=== PATIENT | male | born 1965 | race Caucasian/White ===

== ENCOUNTER 2019-01-13 07:58 | Emergency (ER) | payer OTHER ==
[2019-01-13 08:39] LABS: Influenza A Molecular NEGATIVE (Negative); Influenza B Molecular NEGATIVE (Negative)
--- NOTE | 2019-01-13 08:45 | UC ---
UC General HPI - HPI Summary HPI Summary: Healthy 53 yo male presents with dizziness when changing position from supine to standing and body aches. Began after exercising yesterday. NURSES NOTE REVIEWED. VITAL SIGNS REVIEWED. From midnight to 6 am couldn't sleep. Vomited once. Also feels nausea. - History of Current Complaint Chief Complaint: UCGeneralIllness Stated Complaint: FLU LIKE SYMP Time Seen by Provider: 01/13/19 08:15 Hx Obtained From: Patient Hx From Patient Unobtainable Due To: Extremis Onset/Duration: Gradual Onset - began after 2 vigorous workouts yesterday Onset Severity: Moderate Current Severity: Moderate - dizzy when standing Pain Intensity: 7 Associated Signs & Symptoms: Positive: Dizziness. Negative: Headache - Allergy/Home Medications Allergies/Adverse Reactions: Allergies Allergy/AdvReac Type Severity Reaction Status Date / Time No Known Allergies Allergy Verified 01/13/19 08:13 PMH/Surg Hx/FS Hx/Imm Hx Previously Healthy: Yes - Denies significant hospitalizations or surgery. - Surgical History Surgery Procedure, Year, and Place: hemmorrhoid/fistual - Family History Known Family History: Positive: Hypertension - Social History Occupation: Employed Full-time - Human Resources at [employer] Lives: With Family Alcohol Use: Weekly Substance Use Type: None Smoking Status (MU): Never Smoked Tobacco Review of Systems All Other Systems Reviewed And Are Negative: Yes Constitutional: Negative: Fever Skin: Positive: Negative Eyes: Positive: Negative ENT: Positive: Negative Respiratory: Positive: Negative. Negative: Shortness Of Breath Cardiovascular: Positive: Negative. Negative: Palpitations Gastrointestinal: Positive: Negative. Negative: Abdominal Pain Genitourinary: Positive: Negative Motor: Positive: Other - dizziness with standing Neurovascular: Positive: Negative Musculoskeletal: Positive: Myalgia - diffuse Neurological: Positive: Negative Psychological: Positive: Negative Is Patient Immunocompromised?: No Physical Exam - Summary Physical Exam Summary: Patient on initial examination appeared healthy but complained of inability to change position without feeling dizzy. Orthostatics taken and recorded. Concern was for rhabdo given hx. Urine checked. Triage Information Reviewed: Yes Appearance: No Pain Distress, Well-Nourished Vital Signs: Initial Vital Signs Temp 98.1 F 01/13/19 08:06 Pulse 96 01/13/19 08:06 Resp 18 01/13/19 08:06 BP 109/61 01/13/19 08:06 Pulse Ox 98 01/13/19 08:06 Vital Signs Reviewed: Yes Eye Exam: Normal ENT Exam: Normal Dental Exam: Normal Neck exam: Normal Neck: Positive: 1 Respiratory Exam: Normal Respiratory: Positive: Chest non-tender, Lungs clear, Normal breath sounds Cardiovascular Exam: Normal Cardiovascular: Positive: RRR, No Murmur. Negative: Pulses Normal Abdominal Exam: Normal Abdomen Description: Positive: Nontender, No Organomegaly, Soft Bowel Sounds: Positive: Present Musculoskeletal Exam: Normal Neurological Exam: Normal Psychological Exam: Normal Skin Exam: Normal Course/Dx - Course Course Of Treatment: Healthy 53 yo male. Patient on initial examination appeared healthy but complained of inability to change position without feeling dizzy. Orthostatics taken and recorded. Concern was for rhabdo given hx.of exercise. Patient denied use of any drugs or supplements. Urine checked. Protein noted. No discoloration noted. Given one liter of normal saline. Patient's condition resolved. Vital signs within normal limits. Full ambulation and position change without symptoms. My dx is dehydration. Plan is for patient to increase hydration, with no exercise over the next 24 hours. Go to ED for any renewal or new symptoms. MEDICATIONS REVIEWED. HYPERTENSION STATUS REVIEWED WITH PATIENT. - Differential Dx - Multi-Symptom Differential Diagnoses: Cardiac Ischemia, Metabolic Abnormality, Urinary Tract Infection - Diagnoses Provider Diagnosis: Dehydration after exertion Discharge - Sign-Out/Discharge Documenting (check all that apply): Patient Departure All imaging exams completed and their final reports reviewed: No Studies - Discharge Plan Condition: Stable Disposition: HOME Patient Education Materials: Dehydration (ED), Rhabdomyolysis (ED) Referrals: Marylou Horner MD [Primary Care Provider] - Additional Instructions: WE DISCUSSED: PLEASE SEEK CARE AT THE EMERGENCY DEPARTMENT IF SYMPTOMS WORSEN OR IF NEW SYMPTOMS DEVELOP. FOLLOW UP WITH YOUR PRIMARY CARE PHYSICIAN IF CONDITION CONTINUES BEYOND 3 DAYS WITHOUT IMPROVEMENT. We are open from 7 a.m. to 10 p.m. Call us with any questions or concerns. YOUR DIAGNOSIS IS: Dehydration YOUR PRESCRIPTION RECOMMENDATION IS: Rest today, no exercise, increase her fluid intake. OTHER INSTRUCTIONS: Watch for any signs of rhabdomyolysis. I doubt that you have this, but I have given instructions about this. In particular, if you notice any change in your urine you simply are not feeling better over the next 24 hours. Go to the ED for reassessment. - Billing Disposition and Condition Condition: STABLE Disposition: Home
[2019-01-13] MEDS ORDERED: Ondansetron ODT TAB* 4 MG PO ONE (08:51)
[2019-01-13] MEDS ORDERED: NS 0.9% 1000 ML** 1,000 ML BOLUS ONE (08:55)
[2019-01-13 10:16] VITALS: BP 102/59
== END 2019-01-13 10:25 | disposition home or self-care (01) ==
LOC: UCEAST 07:58
DX: E86.0 Dehydration (principal); R42 Dizziness and giddiness; M79.10 Myalgia, unspecified site
CPT/HCPCS: 81003; 96360; 99212; A9270-GY; G0463